=== PATIENT | male | born 1935 | race African-American/Black ===

== ENCOUNTER 2016-12-14 19:27 | Inpatient (IN) | payer OTHER ==
[~2016-12-14] VITALS: Ht 165.1 cm; Wt 56.7 kg
--- NOTE | 2016-12-14 19:35 | NUR ---
PT BIB [facility] 84 FROM [facility] AFTER HAVING SYNCOPAL EPISODE.PT WAS IN BATHROOM AND WHEN HE WENT TO GET OFF TOILET PASSED OUT.WAS ABLE TO WAKE UP AND WALKED WITH ASSISTANCE.PT AWAKE AND FOLLOWING SIMPLE COMMANDS WITHOUT DIFFICULTY.DENIES PAIN. PT ALERT, ORIENTED X 3, NO RESP DISTRESS NOTED OR REPORTED UPON ASSESSMENT.. PT STATES HE DOES NOT REMEMBER EVENTS THAT LED UP TO BEING INTO [facility]... MD AT BEDSIDE...
[2016-12-14] MEDS ORDERED: IV NORMAL SALINE 1000 ML BAG IV ONE (19:45)
[2016-12-14] MEDS ORDERED: PROBIOTIC PO (19:54)
[2016-12-14] MEDS ORDERED: CITA10TA9 PO ×2 (19:54→20:45)
[2016-12-14] MEDS ORDERED: RISP1TAB27 PO ×2 (19:54→20:38)
[2016-12-14] MEDS ORDERED: AMLO10TA2 PO (19:54)
[2016-12-14] MEDS ORDERED: LISI40TA4 PO (19:54)
[2016-12-14] MEDS ORDERED: OMEP20CA10 PO (19:54)
[2016-12-14] MEDS ORDERED: ATOR10TA PO (19:54)
[2016-12-14] MEDS ORDERED: ASCO-371 PO (19:54)
[2016-12-14] MEDS ORDERED: CHOL50004 PO (19:54)
[2016-12-14] MEDS ORDERED: MULT1TAB11 PO (19:54)
[2016-12-14] MEDS ORDERED: ASPI-612 PO (19:54)
[2016-12-14] MEDS ORDERED: ASCO-382 PO (19:54)
[2016-12-14] MEDS ORDERED: DONE10TA44 PO (19:54)
[2016-12-14 20:18] LABS: HEMATOCRIT 38.5 % (40.0-50.0); HEMOGLOBIN 12.8 g/dL (14.0-18.0); MEAN CORPUSCULAR HEMOGLOBIN 31.7 uug (27.0-31.0); MEAN CORPUSCULAR HGB CONC 33 g/dL (32.0-37.0); MEAN CORPUSCULAR VOLUME 95.1 fL (82.0-92.0); PLATELET COUNT (AUTO) 255 K/uL (150-450); RED BLOOD CELL COUNT(AUTO) 4.05 MIL/uL (4.70-6.10); RED CELL DISTRIBUTION WIDTH 12.9 % (11.5-14.5); WHITE BLOOD COUNT (AUTO) 6.8 K/uL (4.0-11.2)
[2016-12-14 20:20] LABS: CALCIUM 9.3 mg/dL (8.5-10.1); POTASSIUM 4.2 mmol/L (3.5-5.1)
[2016-12-14 20:28] LABS: TROPONIN I 0.027 ng/mL (0.00-0.056)
[2016-12-14 20:29] LABS: BILIRUBIN,DIRECT 0.1 mg/dL (0.0-0.2); BILIRUBIN,TOTAL 0.2 mg/dL (0.1-1.0)
[2016-12-14 20:30] LABS: ALBUMIN 3.8 g/dL (3.4-5.0); TOTAL PROTEIN, SERUM 7.6 g/dL (6.4-8.2)
[2016-12-14 20:33] LABS: LACTIC ACID 1.9 mmol/L (0.4-2.0)
[2016-12-14] MEDS ORDERED: BETA15CR TP (20:33)
[2016-12-14] MEDS ORDERED: FLUO60SO3 TP (20:35)
[2016-12-14] MEDS ORDERED: CLOT15CR63 TP (20:37)
[2016-12-14 20:39] LABS: BAND % (MANUAL) 3 % (0-10); EOSINOPHILS % (MANUAL) 1 % (0-8); LYMPHOCYTES % (MANUAL) 12 % (20-40); MONOCYTES % (MANUAL) 5 % (2-10); NEUTROPHILS % (MANUAL) 79 % (42-75); PLATELET ESTIMATE ADEQUATE
--- NOTE | 2016-12-14 20:55 | NUR ---
contacted radiology dept to have chest x-ray read, pullman conductor states there was a delay in transmitting x-ray, tech advised it should be in momentarily....
--- NOTE | 2016-12-14 21:14 | NUR ---
[facility] paged for panel call....
[2016-12-14] MEDS ORDERED: risperiDONE 1 MG TABLET PO STA (21:39)
--- NOTE | 2016-12-14 21:45 | NUR ---
2nd call for [facility]....
[2016-12-14] MEDS ORDERED: risperiDONE 1 MG TABLET ONE (22:14)
--- NOTE | 2016-12-14 22:20 | NUR ---
Pt. admitted to telemetry , under care of Dr. Rodriguez, [place]ongs List completed, pt alert, orietned x 3, neice Jackelyn at side, no resp distress noted upon transfer assessment... pt taken to radiology for scan, and will be taken to straight to room there after...
[2016-12-14 22:30] VITALS: BP 116/64
--- NOTE | 2016-12-14 22:30 | NUR ---
Received patient from ER with no s/s of distress and complaints of pain. Alert, oriented to person. Disoriented to time and place. No recollection of incident that led to hospital admission. Cooperative with care. Patient's niece at bedside and provided pertinent information. IVF given, infusing well. Skin documentation done. Comfort measures given. Safety precautions in place. Call light within reach. Will continue to monitor.
[2016-12-14] MEDS ORDERED: ONDANSETRON 4 MG/2 ML VIAL IV PRN (22:45)
[2016-12-14] MEDS ORDERED: NORMAL SALINE FLUSH 10 ML DISP.SYRIN IV PRN (22:45)
[2016-12-14] MEDS ORDERED: MORPHINE SULFATE 2 MG/1 ML DISP.SYRIN IV PRN (22:45)
[2016-12-14] MEDS ORDERED: ACETAMINOPHEN 650 MG SUPP.RECT RC PRN (22:45)
[2016-12-15 00:20] VITALS: BP 118/64
[2016-12-15] MEDS: IV 1/2NS 1000 ML 1,000 ML IV PRN ×2 (00:36→21:58)
[2016-12-15 04:00] VITALS: BP 118/65
[2016-12-15] MEDS: NORMAL SALINE FLUSH 10 ML DISP.SYRIN IV SCH ×2 (05:42→15:15)
--- NOTE | 2016-12-15 06:27 | NUR ---
Patient lying in bed, no s/s of distress. Patient is confused with no episode of aggression or combativeness. Reports absence of pain at this time. IV line transferred from right to left forearm #22. Kept, clean, dry and comfortable. Assisted during ambulation. Safety precautions in place. Call light kept within reach. Frequent checks done. Endorsed accordingly.
--- NOTE | 2016-12-15 06:50 | NUR ---
TELE WITH SINUS RHYTHM. NO ACUTE DISTRESS NOTED. NEEDS CONSTANT REDIRECTION. SAFETY MAINTAINED. CALL LIGHT WITHIN REACH
[2016-12-15 07:15] LABS: ALBUMIN 3.4 g/dL (3.4-5.0); BILIRUBIN,TOTAL 0.3 mg/dL (0.2-1.0); CALCIUM 8.7 mg/dL (8.5-10.1); MAGNESIUM 2.2 mg/dL (1.8-2.4); POTASSIUM 3.9 mmol/L (3.5-5.1); TOTAL PROTEIN, SERUM 6.9 g/dL (6.4-8.2)
[2016-12-15 07:16] LABS: THYROID STIMULATING HORMONE 2.417 mIU/mL (0.358-3.740)
[2016-12-15 07:26] LABS: CREATININE 1.4 mg/dL (0.6-1.3)
[2016-12-15 07:32] LABS: HEMOGLOBIN 11.1 g/dL (14.0-18.0); MEAN CORPUSCULAR HEMOGLOBIN 31.8 uug (27.0-31.0); MEAN CORPUSCULAR HGB CONC 33 g/dL (32.0-37.0); MEAN CORPUSCULAR VOLUME 96.4 fL (82.0-92.0); PLATELET COUNT (AUTO) 228 K/uL (150-450); RED CELL DISTRIBUTION WIDTH 13.3 % (11.5-14.5)
[2016-12-15 07:57] LABS: HEMATOCRIT 33.7 % (40.0-50.0); WHITE BLOOD COUNT (AUTO) 4.7 K/uL (4.0-11.2)
--- NOTE | 2016-12-15 08:00 | NUR ---
Pt is forgetful. Fall precaution implemented. Pt is in no acute distress. Skin very dry applied lotion. No open wounds noted. IV intact on left hand. Medications reconcilled and verified by pharmacist awaiting creams to arrive. Call light is within reach.
[2016-12-15] MEDS: PANTOPRAZOLE SODIUM 40 MG TABLET.DR PO SCH (08:19)
[2016-12-15] MEDS: AMLODIPINE 10 MG TABLET PO SCH (08:19)
[2016-12-15] MEDS: ASCORBIC ACID 500 MG TABLET PO SCH (08:19)
[2016-12-15] MEDS: ASPIRIN 325 MG TABLET PO SCH (08:20)
[2016-12-15] MEDS: MULTIVIT, IRON, MIN NO. 8, FA TABLET PO SCH (08:20)
[2016-12-15] MEDS: CITALOPRAM 10 MG TABLET PO SCH (08:59)
[2016-12-15] MEDS: risperiDONE 0.5 MG TABLET PO SCH ×2 (08:59→20:19)
[2016-12-15] MEDS ORDERED: risperiDONE 1 MG TABLET PO SCH ×2 (09:00)
[2016-12-15] MEDS ORDERED: FLUOCINONIDE 0.05% SOLU 60 ML BOTTLE TP SCH (09:00)
[2016-12-15] MEDS ORDERED: Medication Not On Formulary EA (Multivitamins W-Minerals (Multivitamin With Minerals) 1 PO SCH (09:00)
[2016-12-15] MEDS ORDERED: CITALOPRAM 10 MG TABLET PO SCH (09:00)
[2016-12-15 10:28] LABS: EOSINOPHILS % (MANUAL) 1 % (0-8); LYMPHOCYTES % (MANUAL) 31 % (20-40); MONOCYTES % (MANUAL) 8 % (2-10); NEUTROPHILS % (MANUAL) 60 % (42-75)
[2016-12-15 10:29] LABS: PLATELET ESTIMATE ADEQUATE
[2016-12-15 11:03] VITALS: BP 110/54
[2016-12-15] MEDS: CLOTRIMAZOLE 1% CREAM 30 GM TUBE TP SCH (12:23)
[2016-12-15] MEDS: FLUOCINONIDE 0.05% CREAM 30 GM TUBE TP SCH ×2 (12:23→17:22)
[2016-12-15] MEDS: BETAMET DP 0.05% AUGM CR 15 GM CREAM.GM. TP SCH (12:23)
--- NOTE | 2016-12-15 13:30 | NUR ---
Pt has been getting oob going to bathroom. Bed alarm has been effective on preventing falls. . Viviane MANAGER MINING for 1:1 sitter ordered.
[2016-12-15 15:11] VITALS: BP 142/51
--- NOTE | 2016-12-15 18:44 | NUR ---
No fall noted this shift. Pt is in no acute distress. Call light is within reach. Fall precaution effective. Pt has urinary frequency and gets oob to go to the bathroom.
[2016-12-15 19:15] VITALS: BP 128/73
[2016-12-15] MEDS ORDERED: LORAZEPAM 2 MG/1 ML VIAL IV PRN (19:45)
[2016-12-15] MEDS: DONEPEZIL 10 MG TABLET PO SCH (20:18)
[2016-12-15] MEDS: DOCUSATE SODIUM 100 MG CAPSULE PO SCH (20:19)
--- NOTE | 2016-12-15 20:30 | NUR ---
PT OBSERVED TO BE RESTLESS AND ANXIOUS, ATTEMPTING TO GET OUT OF BED DESPITE REDIRECTION, PT GIVEN ATIVAN ORDERED. SAFETY MEASURES MAINTAINED.
--- NOTE | 2016-12-15 20:57 | NUR ---
PATIENT RECEIVED IN BED CONFUSED AND DISORIENTED. PT CONTINUES TO GET OUT OF BED INSISTING TO GO TO THE BANK, REDIRECTION PROVIDED BY 1:1 SITTER. IV FLUIDS RUNNING IN LEFT HAND, INTACT. COMPLIANT WITH MEDICATIONS. NO ACUTE DISTRESS NOTED. WILL CONTINUE TO MONITOR FOR SAFETY.
[2016-12-15] MEDS ORDERED: DOCUSATE SODIUM 250 MG CAPSULE PO SCH (21:00)
[2016-12-16] MEDS ORDERED: LORAZEPAM 2 MG/1 ML VIAL IV ONE (00:30)
--- NOTE | 2016-12-16 00:45 | NUR ---
ATIVAN 0.5MG IV TO BE GIVEN ONE TIME, PT OBSERVED SLEEPING COMFORTABLY. MD MADE AWARE. ATIVAN RETRIEVED FROM PIXES WILL BE RETURNED TO PHARMACY.
[2016-12-16] MEDS: NORMAL SALINE FLUSH 10 ML DISP.SYRIN IV SCH ×4 (02:24→21:03)
--- NOTE | 2016-12-16 03:04 | NUR ---
PT SLEEPING IN BED AT THIS TIME. 1:1 SITTER AT BEDSIDE. WILL CONTINUE TO MONITOR FOR SAFETY.
[2016-12-16 05:00] VITALS: BP 152/65
[2016-12-16] MEDS: PANTOPRAZOLE SODIUM 40 MG TABLET.DR PO SCH (06:37)
[2016-12-16 07:10] LABS: ALBUMIN 3.4 g/dL (3.4-5.0); BILIRUBIN,TOTAL 0.3 mg/dL (0.2-1.0); CALCIUM 8.9 mg/dL (8.5-10.1); CREATININE 1.1 mg/dL (0.6-1.3); MAGNESIUM 1.9 mg/dL (1.8-2.4); POTASSIUM 3.8 mmol/L (3.5-5.1)
[2016-12-16 07:15] LABS: BASOPHILS % (AUTO) 0.7 % (0.0-2.0); EOSINOPHILS # (AUTO) 0.1 K/uL (0.0-0.7); EOSINOPHILS % (AUTO) 3.8 % (0.0-7.0); HEMATOCRIT 35.9 % (40.0-50.0); HEMOGLOBIN 11.7 g/dL (14.0-18.0); LYMPHOCYTES % (AUTO) 28.8 % (20.5-51.5); MEAN CORPUSCULAR HEMOGLOBIN 31.4 uug (27.0-31.0); MEAN CORPUSCULAR HGB CONC 33 g/dL (32.0-37.0); MEAN CORPUSCULAR VOLUME 96.4 fL (82.0-92.0); MONOCYTES # (AUTO) 0.6 K/uL (0.1-1.30); MONOCYTES % (AUTO) 15.7 % (0.0-11.0); NEUTROPHILS # (AUTO) 1.8 K/uL (1.8-8.9); PLATELET COUNT (AUTO) 218 K/uL (150-450); RED BLOOD CELL COUNT(AUTO) 3.73 MIL/uL (4.70-6.10); RED CELL DISTRIBUTION WIDTH 12.8 % (11.5-14.5); WHITE BLOOD COUNT (AUTO) 3.5 K/uL (4.0-11.2)
--- NOTE | 2016-12-16 08:00 | NUR ---
Pt is in no acute distress. Call light is within reach. 1:1 sitter for safety. Fall precaution implemented.
[2016-12-16] MEDS: ASCORBIC ACID 500 MG TABLET PO SCH (08:23)
[2016-12-16] MEDS: MULTIVIT, IRON, MIN NO. 8, FA TABLET PO SCH (08:23)
[2016-12-16] MEDS: ASPIRIN 325 MG TABLET PO SCH (08:23)
[2016-12-16] MEDS: risperiDONE 0.5 MG TABLET PO SCH ×2 (08:23→20:52)
[2016-12-16] MEDS: AMLODIPINE 10 MG TABLET PO SCH (08:26)
[2016-12-16] MEDS: CITALOPRAM 10 MG TABLET PO SCH (08:27)
[2016-12-16] MEDS: CLOTRIMAZOLE 1% CREAM 30 GM TUBE TP SCH (08:28)
[2016-12-16] MEDS: FLUOCINONIDE 0.05% CREAM 30 GM TUBE TP SCH ×2 (08:28→17:30)
[2016-12-16] MEDS: BETAMET DP 0.05% AUGM CR 15 GM CREAM.GM. TP SCH (08:28)
[2016-12-16 08:34] LABS: EOSINOPHILS % (MANUAL) 3 % (0-8); LYMPHOCYTES % (MANUAL) 32 % (20-40); MONOCYTES % (MANUAL) 11 % (2-10); NEUTROPHILS % (MANUAL) 54 % (42-75)
[2016-12-16 08:35] LABS: PLATELET ESTIMATE ADEQUATE
[2016-12-16 11:29] VITALS: BP 143/68
[2016-12-16] MEDS ORDERED: hydrALAZINE HCL 25 MG TABLET PO PRN (12:45)
[2016-12-16] MEDS: IV 1/2NS 1000 ML 1,000 ML IV PRN (17:29)
--- NOTE | 2016-12-16 18:30 | NUR ---
No fall noted this shift. Pt is in no acute distress.
[2016-12-16 20:00] VITALS: BP 133/68
--- NOTE | 2016-12-16 20:00 | NUR ---
RECEIVED PATIENT AWAKE IN BED WITH SITTER AT BEDSIDE. PATIENT IS ALERT TO SELF. CONFUSED AT TIMES AND NEEDS REDIRECTION BUT COOPERATIVE WITH STAFF AND PLEASANT WHEN APPROACHED. DENIES PAIN OR DISCOMFORT. NO RESP. DISTRESS NOTED. IVF INFUSING WELL TO LEFT FA #22 GAUGE. VSS. BED ALARM ON. CALL LIGHT IN REACH. ALL NEEDS ATTENDED. WILL CONTINUE TO MONITOR.
[2016-12-16] MEDS: DONEPEZIL 10 MG TABLET PO SCH (20:52)
[2016-12-16] MEDS: DOCUSATE SODIUM 100 MG CAPSULE PO SCH (20:52)
[2016-12-16] MEDS: ACETAMINOPHEN 325 MG TABLET PO PRN (20:52)
[2016-12-17 05:00] VITALS: BP 136/67
--- NOTE | 2016-12-17 05:41 | NUR ---
PATIENT RESTING IN BED, DOZING ON AND OFF. SLEPT AT INTERVALS THROUGHOUT THE NIGHT. NO S/S OF PAIN OR DISCOMFORT. PATIENT DENIES ANY PAIN. IVF INFUSING WELL TO LEFT FA. SITTER AT BEDSIDE FOR SAFETY. VSS. CALL LIGHT IN REACH. BED ALARM ON. ALL NEEDS ATTENDED. WILL CONTINUE TO MONITOR.
[2016-12-17] MEDS: PANTOPRAZOLE SODIUM 40 MG TABLET.DR PO SCH (06:09)
[2016-12-17] MEDS: NORMAL SALINE FLUSH 10 ML DISP.SYRIN IV SCH ×3 (06:09→21:01)
[2016-12-17 06:55] LABS: BASOPHILS % (AUTO) 0.8 % (0.0-2.0); EOSINOPHILS # (AUTO) 0.1 K/uL (0.0-0.7); HEMATOCRIT 34.2 % (40.0-50.0); HEMOGLOBIN 11.3 g/dL (14.0-18.0); LYMPHOCYTES # (AUTO) 1.1 K/uL (0.8-4.8); LYMPHOCYTES % (AUTO) 34.2 % (20.5-51.5); MEAN CORPUSCULAR HEMOGLOBIN 31.8 uug (27.0-31.0); MEAN CORPUSCULAR HGB CONC 33 g/dL (32.0-37.0); MEAN CORPUSCULAR VOLUME 96.1 fL (82.0-92.0); MONOCYTES # (AUTO) 0.5 K/uL (0.1-1.30); MONOCYTES % (AUTO) 13.6 % (0.0-11.0); NEUTROPHILS # (AUTO) 1.7 K/uL (1.8-8.9); NEUTROPHILS % (AUTO) 47.4 % (38.5-71.5); PLATELET COUNT (AUTO) 228 K/uL (150-450); RED BLOOD CELL COUNT(AUTO) 3.56 MIL/uL (4.70-6.10); WHITE BLOOD COUNT (AUTO) 3.4 K/uL (4.0-11.2)
[2016-12-17 07:05] LABS: ALBUMIN 3.2 g/dL (3.4-5.0); BILIRUBIN,TOTAL 0.3 mg/dL (0.2-1.0); CALCIUM 8.7 mg/dL (8.5-10.1); CREATININE 1.2 mg/dL (0.6-1.3); MAGNESIUM 1.9 mg/dL (1.8-2.4); PHOSPHOROUS 3.2 mg/dL (2.5-4.9); POTASSIUM 3.7 mmol/L (3.5-5.1); TOTAL PROTEIN, SERUM 6.7 g/dL (6.4-8.2)
--- NOTE | 2016-12-17 07:30 | NUR ---
PT RECEIVED IN BED SLEEPING.SITTER AT BED SIDE.NO C/O PAIN NOTED.
[2016-12-17] MEDS: IV 1/2NS 1000 ML 1,000 ML IV PRN ×2 (07:56→21:07)
[2016-12-17] MEDS: AMLODIPINE 10 MG TABLET PO SCH (08:08)
[2016-12-17] MEDS: ASPIRIN 325 MG TABLET PO SCH (08:08)
[2016-12-17] MEDS: MULTIVIT, IRON, MIN NO. 8, FA TABLET PO SCH (08:08)
[2016-12-17] MEDS: CITALOPRAM 10 MG TABLET PO SCH (08:08)
[2016-12-17] MEDS: ASCORBIC ACID 500 MG TABLET PO SCH (08:08)
[2016-12-17] MEDS: risperiDONE 0.5 MG TABLET PO SCH ×2 (08:08→21:00)
[2016-12-17] MEDS: BETAMET DP 0.05% AUGM CR 15 GM CREAM.GM. TP SCH (09:09)
[2016-12-17] MEDS: CLOTRIMAZOLE 1% CREAM 30 GM TUBE TP SCH (09:09)
[2016-12-17] MEDS: FLUOCINONIDE 0.05% CREAM 30 GM TUBE TP SCH ×2 (09:09→16:10)
[2016-12-17 11:39] LABS: EOSINOPHILS % (MANUAL) 6 % (0-8); LYMPHOCYTES % (MANUAL) 25 % (20-40); MONOCYTES % (MANUAL) 14 % (2-10); NEUTROPHILS % (MANUAL) 55 % (42-75); PLATELET ESTIMATE ADEQUATE
[2016-12-17 12:09] VITALS: BP 122/57
[2016-12-17] MEDS ORDERED: LORAZEPAM 2 MG/1 ML VIAL IV PRN (15:45)
[2016-12-17 15:49] VITALS: BP 121/54
--- NOTE | 2016-12-17 19:43 | NUR ---
RESTING IN BED, CALM AND COMFORTABLE. WITH 1:1 SITTER AT BEDSIDE FOR SAFETY . NO ACUTE DISTRESS NOTED AT THIS TIME. NEEDS ATTENDED. CALL LIGHT WITHIN REACH. WILL CONTINUE TO MONITOR
[2016-12-17 20:00] VITALS: BP 131/62
[2016-12-17] MEDS: DONEPEZIL 10 MG TABLET PO SCH (21:00)
[2016-12-17] MEDS: DOCUSATE SODIUM 100 MG CAPSULE PO SCH (21:00)
[2016-12-17] MEDS: LORAZEPAM 2 MG/1 ML VIAL IV PRN (23:40)
--- NOTE | 2016-12-17 23:40 | NUR ---
NOTED TO BE RESTLESS, UNABLE TO REDIRECT. SAFETY MAINTAINED. ATIVAN ADMINISTERED ORDERED. WILL CONTINUE TO MONITOR
[2016-12-18 04:00] VITALS: BP 129/66
--- NOTE | 2016-12-18 06:03 | NUR ---
REMAINED CALM AFTER PRN ATIVAN GIVEN ORDERED. NO ACUTE DISTRESS NOTED. KEPT CLEAN AND DRY. TURNED AND REPOSITIONED. CONTINUES WITH 1:1 SITTER AT BEDSIDE.
[2016-12-18] MEDS: NORMAL SALINE FLUSH 10 ML DISP.SYRIN IV SCH ×3 (06:15→23:13)
[2016-12-18] MEDS: PANTOPRAZOLE SODIUM 40 MG TABLET.DR PO SCH (06:15)
[2016-12-18] MEDS: ASPIRIN 325 MG TABLET PO SCH (08:06)
[2016-12-18] MEDS: MULTIVIT, IRON, MIN NO. 8, FA TABLET PO SCH (08:06)
[2016-12-18] MEDS: ASCORBIC ACID 500 MG TABLET PO SCH (08:06)
[2016-12-18] MEDS: AMLODIPINE 10 MG TABLET PO SCH (08:06)
[2016-12-18] MEDS: CITALOPRAM 10 MG TABLET PO SCH (08:06)
[2016-12-18] MEDS: BETAMET DP 0.05% AUGM CR 15 GM CREAM.GM. TP SCH (08:13)
[2016-12-18] MEDS: CLOTRIMAZOLE 1% CREAM 30 GM TUBE TP SCH (08:14)
[2016-12-18] MEDS: FLUOCINONIDE 0.05% CREAM 30 GM TUBE TP SCH ×2 (08:14→16:03)
[2016-12-18] MEDS: risperiDONE 0.5 MG TABLET PO SCH ×2 (08:31→20:13)
[2016-12-18 09:30] LABS: ALBUMIN 3.7 g/dL (3.4-5.0); BILIRUBIN,TOTAL 0.4 mg/dL (0.2-1.0); CALCIUM 9.3 mg/dL (8.5-10.1); CREATININE 1.1 mg/dL (0.6-1.3); PHOSPHOROUS 3.2 mg/dL (2.5-4.9); POTASSIUM 4.2 mmol/L (3.5-5.1); TOTAL PROTEIN, SERUM 8.2 g/dL (6.4-8.2)
[2016-12-18 09:37] LABS: BASOPHILS # (AUTO) 0.1 K/uL (0.0-0.2); BASOPHILS % (AUTO) 1.9 % (0.0-2.0); EOSINOPHILS # (AUTO) 0.3 K/uL (0.0-0.7); HEMATOCRIT 41.9 % (40.0-50.0); HEMOGLOBIN 13.5 g/dL (14.0-18.0); LYMPHOCYTES # (AUTO) 1.7 K/uL (0.8-4.8); LYMPHOCYTES % (AUTO) 26.1 % (20.5-51.5); MEAN CORPUSCULAR HEMOGLOBIN 31.2 uug (27.0-31.0); MEAN CORPUSCULAR HGB CONC 32 g/dL (32.0-37.0); MEAN CORPUSCULAR VOLUME 96.7 fL (82.0-92.0); MONOCYTES # (AUTO) 0.6 K/uL (0.1-1.30); NEUTROPHILS # (AUTO) 3.6 K/uL (1.8-8.9); PLATELET COUNT (AUTO) 285 K/uL (150-450); RED BLOOD CELL COUNT(AUTO) 4.34 MIL/uL (4.70-6.10); RED CELL DISTRIBUTION WIDTH 13.1 % (11.5-14.5); WHITE BLOOD COUNT (AUTO) 6.3 K/uL (4.0-11.2)
[2016-12-18] MEDS: IV 1/2NS 1000 ML 1,000 ML IV PRN ×2 (09:51→23:18)
[2016-12-18 10:21] LABS: EOSINOPHILS % (MANUAL) 1 % (0-8); LYMPHOCYTES % (MANUAL) 25 % (20-40); MONOCYTES % (MANUAL) 5 % (2-10); NEUTROPHILS % (MANUAL) 69 % (42-75); PLATELET ESTIMATE ADEQUATE
[2016-12-18 12:00] VITALS: BP 131/58
[2016-12-18] MEDS: LORAZEPAM 2 MG/1 ML VIAL IV PRN (14:18)
[2016-12-18 15:21] VITALS: BP 128/64
--- NOTE | 2016-12-18 19:33 | NUR ---
Received patient awake in bed, no s/s of distress. Call light within reach. Will continue to monitor.
[2016-12-18 20:00] VITALS: BP 150/74
[2016-12-18] MEDS: DOCUSATE SODIUM 100 MG CAPSULE PO SCH (20:13)
[2016-12-18] MEDS: DONEPEZIL 10 MG TABLET PO SCH (20:13)
[2016-12-19 05:59] VITALS: BP 161/83
--- NOTE | 2016-12-19 06:01 | NUR ---
Patient resting in bed, slept intermittently. No s/s of distress. No complaints of pain throughout the shift. Assisted when ambulating to the bathroom. Frequent checks done. Call light kept within reach. Sitter at bedside. Safety measures observed. Needs attended. Due meds given. Endorsed accordingly.
[2016-12-19] MEDS: PANTOPRAZOLE SODIUM 40 MG TABLET.DR PO SCH (06:26)
[2016-12-19] MEDS: NORMAL SALINE FLUSH 10 ML DISP.SYRIN IV SCH ×2 (07:25→13:37)
[2016-12-19] MEDS: ASPIRIN 325 MG TABLET PO SCH (08:00)
[2016-12-19] MEDS: MULTIVIT, IRON, MIN NO. 8, FA TABLET PO SCH (08:00)
[2016-12-19] MEDS: ASCORBIC ACID 500 MG TABLET PO SCH (08:00)
[2016-12-19] MEDS: AMLODIPINE 10 MG TABLET PO SCH (08:01)
[2016-12-19] MEDS: risperiDONE 0.5 MG TABLET PO SCH ×2 (08:01→20:01)
[2016-12-19] MEDS: CITALOPRAM 10 MG TABLET PO SCH (08:01)
[2016-12-19] MEDS: BETAMET DP 0.05% AUGM CR 15 GM CREAM.GM. TP SCH (08:15)
[2016-12-19] MEDS: CLOTRIMAZOLE 1% CREAM 30 GM TUBE TP SCH (08:15)
[2016-12-19] MEDS: FLUOCINONIDE 0.05% CREAM 30 GM TUBE TP SCH ×2 (08:15→16:19)
[2016-12-19] MEDS: IV 1/2NS 1000 ML 1,000 ML IV PRN (11:34)
[2016-12-19 11:36] VITALS: BP 149/81
[2016-12-19 16:37] VITALS: BP 142/75
[2016-12-19 19:00] VITALS: BP 146/73
--- NOTE | 2016-12-19 20:00 | NUR ---
RECEIVED PATIENT AWAKE IN BED. ALERT TO SELF. CONFUSED BUT APPROPRIATE WHEN APPROACHED AND COMPLIANT AND COOPERATIVE WITH CARE. 1:1 SITTER AT BEDSIDE ORDERED. VSS. IV HEPLOCK NOTED TO LEFT FA, INFILTRATED AND PATIENT C/O DISCOMFORT. NOTIFIED DR. MCCARTNEY AND RECEIVED ORDERS FOR IVF AND H/L TO BE DISCONTINUED. DENIES ANY OTHER PAIN OR DISCOMFORT. NO RESP. DISTRESS NOTED. BED ALARM ON. CALL LIGHT IN REACH. ALL NEED ATTENDED. WILL CONTINUE TO MONITOR.
[2016-12-19] MEDS: DOCUSATE SODIUM 100 MG CAPSULE PO SCH (20:01)
[2016-12-19] MEDS: ACETAMINOPHEN 325 MG TABLET PO PRN (20:01)
[2016-12-19] MEDS: DONEPEZIL 10 MG TABLET PO SCH (20:01)
[2016-12-19] MEDS ORDERED: FUROSEMIDE 20 MG TABLET PO ONE (20:30)
[2016-12-20 05:37] VITALS: BP 133/77
[2016-12-20] MEDS: PANTOPRAZOLE SODIUM 40 MG TABLET.DR PO SCH (06:04)
--- NOTE | 2016-12-20 06:42 | NUR ---
PATIENT AWAKE IN BED. SLEPT WELL THROUGHOUT THE NIGHT. SITTER AT BEDSIDE. PATIENT DENIES PAIN. BED ALARM ON. CALL LIGHT IN REACH. ALL NEEDS ATTENDED. WILL CONTINUE TO MONITOR.
[2016-12-20 07:16] LABS: ALBUMIN 3.6 g/dL (3.4-5.0); BILIRUBIN,TOTAL 0.5 mg/dL (0.2-1.0); CALCIUM 8.9 mg/dL (8.5-10.1); CREATININE 1.1 mg/dL (0.6-1.3); PHOSPHOROUS 3.2 mg/dL (2.5-4.9); TOTAL PROTEIN, SERUM 7.5 g/dL (6.4-8.2)
[2016-12-20] MEDS: CITALOPRAM 10 MG TABLET PO SCH (08:00)
[2016-12-20] MEDS: ASPIRIN 325 MG TABLET PO SCH (08:00)
[2016-12-20] MEDS: ASCORBIC ACID 500 MG TABLET PO SCH (08:00)
[2016-12-20] MEDS: risperiDONE 0.5 MG TABLET PO SCH ×2 (08:00→20:29)
[2016-12-20] MEDS: MULTIVIT, IRON, MIN NO. 8, FA TABLET PO SCH (08:00)
--- NOTE | 2016-12-20 08:00 | NUR ---
received resting in bed, calm and cooperative, oriented to self only, sitter at bedside, lower extremities with old scar and scaly, safety measures maintained, breakfast served- aspiration precautions observed
[2016-12-20] MEDS: BETAMET DP 0.05% AUGM CR 15 GM CREAM.GM. TP SCH (08:01)
[2016-12-20] MEDS: FLUOCINONIDE 0.05% CREAM 30 GM TUBE TP SCH ×2 (08:01→16:21)
[2016-12-20] MEDS: AMLODIPINE 10 MG TABLET PO SCH (08:01)
[2016-12-20] MEDS: CLOTRIMAZOLE 1% CREAM 30 GM TUBE TP SCH (08:01)
[2016-12-20 09:59] LABS: BASOPHILS % (AUTO) 0.9 % (0.0-2.0); EOSINOPHILS # (AUTO) 0.1 K/uL (0.0-0.7); EOSINOPHILS % (AUTO) 3.8 % (0.0-7.0); HEMOGLOBIN 11.8 g/dL (14.0-18.0); LYMPHOCYTES # (AUTO) 0.8 K/uL (0.8-4.8); LYMPHOCYTES % (AUTO) 23.2 % (20.5-51.5); MEAN CORPUSCULAR HEMOGLOBIN 31.2 uug (27.0-31.0); MEAN CORPUSCULAR HGB CONC 33 g/dL (32.0-37.0); MONOCYTES # (AUTO) 0.4 K/uL (0.1-1.30); MONOCYTES % (AUTO) 11.9 % (0.0-11.0); NEUTROPHILS # (AUTO) 2.1 K/uL (1.8-8.9); NEUTROPHILS % (AUTO) 60.2 % (38.5-71.5); PLATELET COUNT (AUTO) 254 K/uL (150-450); RED CELL DISTRIBUTION WIDTH 12.8 % (11.5-14.5)
[2016-12-20 10:02] LABS: WHITE BLOOD COUNT (AUTO) 3.4 K/uL (4.0-11.2)
[2016-12-20 10:09] LABS: HEMATOCRIT 35.9 % (40.0-50.0); RED BLOOD CELL COUNT(AUTO) 3.79 MIL/uL (4.70-6.10)
[2016-12-20 11:10] VITALS: BP 100/51
--- NOTE | 2016-12-20 12:00 | NUR ---
taking food and liquids well without any problem, kept comfortable
--- NOTE | 2016-12-20 15:24 | NUR ---
Discharge Plan: The patient's discharge plan is to go to [facility] [[id number] [place], [place] [id number] ] once medically cleared. Jackelyn More [[phone]] will transport patient via private car.
[2016-12-20 15:41] VITALS: BP 111/57
--- NOTE | 2016-12-20 18:28 | NUR ---
melissa (Jackelyn) here visiting- states pt is going to a board and care tomorrow, no distress noted, all needs attended and met, safety measures maintained, repositioned q2h with heels off loaded with pillows, tele a flutter 75-80's Addendum: 12/20/16 at 1830 by MICHAEL MENDOZA RN pt not on tele- tele a flutter incorrect entry
[2016-12-20 19:00] VITALS: BP 119/54
[2016-12-20] MEDS: DONEPEZIL 10 MG TABLET PO SCH (20:29)
[2016-12-20] MEDS: DOCUSATE SODIUM 100 MG CAPSULE PO SCH (20:29)
[2016-12-21] MEDS: PANTOPRAZOLE SODIUM 40 MG TABLET.DR PO SCH (06:29)
--- NOTE | 2016-12-21 07:30 | NUR ---
PT RECEIVED IN BED SLEEPING.SITTER AT BED SIDE,V/S ARE STABLE.NO C/O PAIN NOTED.
[2016-12-21] MEDS: MULTIVIT, IRON, MIN NO. 8, FA TABLET PO SCH (08:03)
[2016-12-21] MEDS: ASCORBIC ACID 500 MG TABLET PO SCH (08:03)
[2016-12-21] MEDS: AMLODIPINE 10 MG TABLET PO SCH (08:03)
[2016-12-21] MEDS: ASPIRIN 325 MG TABLET PO SCH (08:03)
[2016-12-21] MEDS: risperiDONE 0.5 MG TABLET PO SCH (08:03)
[2016-12-21] MEDS: CITALOPRAM 10 MG TABLET PO SCH (08:03)
[2016-12-21] MEDS: FLUOCINONIDE 0.05% CREAM 30 GM TUBE TP SCH ×2 (08:04→16:01)
[2016-12-21] MEDS: CLOTRIMAZOLE 1% CREAM 30 GM TUBE TP SCH (08:04)
[2016-12-21] MEDS: BETAMET DP 0.05% AUGM CR 15 GM CREAM.GM. TP SCH (08:04)
[2016-12-21 12:35] VITALS: BP 133/62
[2016-12-21] MEDS ORDERED: Acetaminophen PO (13:34)
[2016-12-21 16:17] VITALS: BP 122/61
--- NOTE | 2016-12-21 18:25 | NUR ---
D/C ORDERS RECEIVED NOTED AND CARRIED OUT.D/C INSTRUCTIONS AND EDUCATIONS GIVEN TO THE NICE.PT LEFT THE FACILITY VIA PRIVATE CAR IN STABLE CONDITION.
== END 2016-12-21 18:30 | DRG 684 ==
LOC: ER 19:27 → TELE 21:56 → MED 12-15 19:30
PROVIDERS: ADMIT Internal Medicine; ATTEND Internal Medicine
DX: N17.0 Acute kidney failure with tubular necrosis (principal); F03.90 Unspecified dementia, unspecified severity, without behavioral disturbance, psychotic disturbance, mood disturbance, and anxiety; E86.0 Dehydration; M50.30 Other cervical disc degeneration, unspecified cervical region; I11.9 Hypertensive heart disease without heart failure; F41.9 Anxiety disorder, unspecified; Z86.73 Personal history of transient ischemic attack (TIA), and cerebral infarction without residual deficits; D53.9 Nutritional anemia, unspecified; D72.819 Decreased white blood cell count, unspecified; I65.22 Occlusion and stenosis of left carotid artery; W01.0XXA Fall on same level from slipping, tripping and stumbling without subsequent striking against object, initial encounter; M48.02 Spinal stenosis, cervical region; R73.9 Hyperglycemia, unspecified; F32.9 Major depressive disorder, single episode, unspecified; I65.29 Occlusion and stenosis of unspecified carotid artery; M19.90 Unspecified osteoarthritis, unspecified site; I34.0 Nonrheumatic mitral (valve) insufficiency; I36.1 Nonrheumatic tricuspid (valve) insufficiency; N13.9 Obstructive and reflux uropathy, unspecified; I95.1 Orthostatic hypotension; M85.80 Other specified disorders of bone density and structure, unspecified site; Y93.9 Activity, unspecified; Y92.009 Unspecified place in unspecified non-institutional (private) residence as the place of occurrence of the external cause; Y99.9 Unspecified external cause status; R90.89 Other abnormal findings on diagnostic imaging of central nervous system
CPT/HCPCS: 36415; 70030-TC; 70450; 71010; 72125; 73521; 83605; 83735; 84100; 84443; 85025; 85651; 85730; 87040; 93005; 93307; 93880; 97001; 97110; 97116; 97530; A4663; J2060; J3490; J7030